=== PATIENT | female | born 1930 | race Caucasian/White ===

== ENCOUNTER 2016-10-02 10:22 | Outpatient (CLI) | payer MEDICARE ==
[2016-10-02 11:25] LABS: Anion Gap 14 mmol/L (10-20); BUN (Urea Nitrogen) 13 mg/dL (9.8-20.1); Calc. Creatinine Clearance 0 mL/min (70-130); Calcium 9.1 mg/dL (7.8-10.44); Carbon Dioxide 29 mmol/L (23-31); Chloride 105 mmol/L (98-107); Estimated GFR-MDRD 74
[2016-10-02 11:36] LABS: #Basophils 0.1 thou/uL (0.0-0.2); #Eosinphils 0.1 thou/uL (0.0-0.7); #Lymphocytes 1.6 thou/uL (1.20-3.40); #Monocytes 0.5 thou/uL (0.11-0.59); #Neutrophils 3.8 thou/uL (1.40-6.50); %Eosinophils 1.5 % (0.0-10.0); %Monocytes 8.9 % (0.0-10.0); Hematocrit 39.6 % (36.0-47.0); Mean Platelet Volume 7.4 fL (7.4-10.4); Red Blood Cell (RBC) Count 4.08 mill/uL (4.20-5.40); White Blood Cell (WBC) Count 6.1 thou/uL (4.8-10.8)
== END 2016-10-02 10:23 | disposition home or self-care (01) ==
LOC: HPCALD 10:22
PROVIDERS: ATTEND Family Medicine
DX: I10 Essential (primary) hypertension (principal)
CPT/HCPCS: 36415; 80048; 85025

== ENCOUNTER 2017-04-14 09:21 | Inpatient (IN) | payer MEDICARE ==
[~2017-04-14 09:21] MED LIST: Iopamidol 370 76% 100 ML VIAL ONE
[2017-04-14 10:00] LABS: #Basophils 0.1 thou/uL (0.0-0.2); #Lymphocytes 1.1 thou/uL (1.20-3.40); #Monocytes 0.7 thou/uL (0.11-0.59); #Neutrophils 9.2 thou/uL (1.40-6.50); %Basophils 1.1 % (0.0-1.0); %Eosinophils 0.2 % (0.0-10.0); %Lymphocytes 9.6 % (21.0-51.0); %Monocytes 6.6 % (0.0-10.0); %Neutrophils 82.5 % (42.0-75.0); Hemoglobin 13.3 g/dL (12.0-16.0); Mean Corpuscular HGB CONC 33.2 g/dL (32.0-36.0); Mean Corpuscular Hemoglobin 32.5 pg (27.0-31.0); Mean Corpuscular Volume 97.9 fl (81.0-99.0); Mean Platelet Volume 7.9 fL (7.4-10.4); Platelet Count 187 thou/uL (130-400); RBC Distribution Width 11.8 % (11.5-14.5); White Blood Cell (WBC) Count 11.2 thou/uL (4.8-10.8)
[2017-04-14 10:02] LABS: INR-International Normal Ratio 1.2; PTT 27.6 SEC (22.9-36.1); Prothrombin Time 15.8 SEC (12.0-14.7)
[2017-04-14 10:05] LABS: Bilirubin Negative (Negative); Blood, Urine Trace (Negative); Clarity Clear (Clear); Glucose, Urine (Dipstick) Negative (Negative); Leukocyte Negative (Negative); Nitrite Negative (Negative); Protein, Urine (Dipstick) Trace mg/dL (Neg-Trace); Urobilinogen 0.2 mg/dL (0.2-1.0)
[2017-04-14 10:15] LABS: Amphetamine Not Detected (NotDetected); Bacteria/HPF 1+ HPF (None Seen); Barbiturates Screen Not Detected (NotDetected); Benzodiazepine Screen Not Detected (NotDetected); Cocaine Metabolite Screen Not Detected (NotDetected); Crystals/HPF 1+ AMORPH URATES HPF (Negative); Medtox Control Line Valid? VALID (VALID); Methadone Not Detected (NotDetected); Methamphetamine Not Detected (NotDetected); Opiate Screen Not Detected (NotDetected); Oxycodone Screen Not Detected (NotDetected); Phencyclidine (PCP) Not Detected (NotDetected); RBC/HPF 0-3 HPF (0-3); Squamous Epithelial 0-3 HPF (0-3); THC/Cannabinoid Screen Not Detected (NotDetected); Tricyclic Screen Not Detected (NotDetected); WBC/HPF 0-3 HPF (0-3)
[2017-04-14 10:21] LABS: Troponin I Less than 0.010 ng/mL (< 0.028)
[2017-04-14 11:52] LABS: ALT (SGPT) Less than 7 U/L (8-55); AST (SGOT) 16 U/L (5-34); Albumin 4.7 g/dL (3.4-4.8); Alkaline Phosphatase 52 U/L (40-150); Anion Gap 19 mmol/L (10-20); BUN (Urea Nitrogen) 39 mg/dL (9.8-20.1); Bilirubin, Total 0.3 mg/dL (0.2-1.2); Calc. Creatinine Clearance 0 mL/min (70-130); Calcium 10.3 mg/dL (7.8-10.44); Carbon Dioxide 21 mmol/L (23-31); Chloride 108 mmol/L (98-107); Estimated GFR-MDRD 59; Globulin 3.3 g/dL (2.4-3.5); Glucose 134 mg/dL (83-110); Lipase 50 U/L (8-78); Potassium 3.5 mmol/L (3.5-5.1); Sodium 144 mmol/L (136-145)
--- NOTE | 2017-04-14 14:15 | CT ---
CT ANGIOGRAM THORAX WITH IV CONTRAST AND 3D RECONSTRUCTIONS 04/14/2017 HISTORY: Dyspnea. Altered mental status and confusion and agitation. COMPARISON: 10/01/2015 FINDINGS: Exam is obtained with the patient in the kyphotic positioning. There is a left subclavian AICD guillermina ce noted in place. The pacing device in the soft tissues of the left chest results in significant a rtifact in addition to significant spray artifact from the dense contrast in the SVC. However, no d efinite filling defects are seen in the pulmonary arteries to suggest a pulmonary embolus. Vascular calcifications are seen in the thoracic aorta; the thoracic aorta is normal in caliber with out evidence of an aortic dissection. A large hiatal hernia is again present with the majority of the stomach above the level of the hemid iaphragms. The heart is enlarged, and there is a small pericardial effusion identified. Dependent atelectasis seen in the lungs bilaterally. No discrete pulmonary nodule mass, or pleural effusion is identified. Degenerative changes are noted in the spine. Lucency is seen within the region of the right glenoid neck, but this stable from the prior exam and may be related to a large subchondral cyst. A hypodense nodule is again seen in the right lobe of the thyroid gland which measures 1.7 cm. The patient was noted to have compression fracture of T7 and T12 vertebral bodies on prior exam not well seen on this study. IMPRESSION: 1. No CT evidence of a pulmonary embolus. 3. Stable, mild prominence of the main pulmonary arteries which may be related to an element of pulm onary artery hypertension. 3. Cardiomegaly with small pericardial effusion. 4. Large hiatal hernia. 5. Stable hypodense cystic lesion in the right lobe of the thyroid gland. Thyroid ultrasound was re commended on the prior exam. 6. Post-cholecystectomy changes with prominence of the common duct likely related to the post-cholec ystectomy changes. 7. Hypodense lesion, incompletely imaged or evaluated, involving the left kidney. This was noted on prior MRI exam in 2013. 8. Left convex rotoscoliosis of the thoracolumbar spine. 9. Cystic lesion within the right glenoid, stable from prior study and may be related to large subch ondral cyst. POS: [facility]
[2017-04-14] MEDS ORDERED: risperiDONE 0.5 MG TAB PO SCH (15:00)
[2017-04-14] MEDS ORDERED: Fluticasone Propionate Nasal Spray 16 gm Bottle NASAL SCH (15:00)
[2017-04-14 15:37] VITALS: BMI 21.3
--- NOTE | 2017-04-14 16:02 | CT ---
CT OF THE BRAIN WITHOUT CONTRAST 04/14/2017 Comparison is made with a prior study of 02/12/2016. The ventricles are normal in size for age and atrophy. No intracranial bleeding, mass, or sign of s troke was found. There is no edema. The calvarium appears normal. The visible paranasal sinuses a re clear. IMPRESSION: No acute intracranial findings. POS: HOME
--- NOTE | 2017-04-14 16:09 | RAD ---
PORTABLE CHEST 04/14/2017 Comparison is made with a 10/03/2015 study. A large hiatal hernia is again noted. It is difficult to assess the chest well due to the patient b eing turned quite a bit. This is partially responsible for the tracheal bowing to the right as well as the large aortic arch. No congestive change, large pleural effusion, or definite infiltrate was seen. A cardiac pacer is in place. IMPRESSION: Limited study showing large hiatal hernia but no definite acute findings. See CT report to follow. POS: HOME
[2017-04-14] MEDS ORDERED: Milk Of Magnesia 30 ML UDCUP PO PRN (19:36)
[2017-04-14] MEDS: Fluticasone Propionate Nasal Spray 16 gm Bottle NASAL SCH (20:37)
[2017-04-14] MEDS: Polyethylene Glycol OPTH DROP 15 ML BOT EA EYE SCH (20:38)
[2017-04-14] MEDS: risperiDONE 0.5 MG TAB PO SCH (20:39)
[2017-04-14] MEDS: Sulfameth/Trimethoprim DS 800-160mg TAB PO SCH ×2 (20:41→21:19)
[2017-04-15 06:49] LABS: #Basophils 0.2 thou/uL (0.0-0.2); #Eosinphils 0.1 thou/uL (0.0-0.7); #Monocytes 0.7 thou/uL (0.11-0.59); %Basophils 1.4 % (0.0-1.0); %Eosinophils 0.9 % (0.0-10.0); %Lymphocytes 8.8 % (21.0-51.0); %Monocytes 6.6 % (0.0-10.0); %Neutrophils 82.3 % (42.0-75.0); Hemoglobin 12.1 g/dL (12.0-16.0); Mean Corpuscular HGB CONC 33.5 g/dL (32.0-36.0); Mean Corpuscular Hemoglobin 32.4 pg (27.0-31.0); Mean Corpuscular Volume 96.7 fl (81.0-99.0); Mean Platelet Volume 7.2 fL (7.4-10.4); Platelet Count 148 thou/uL (130-400); RBC Distribution Width 11.6 % (11.5-14.5); Red Blood Cell (RBC) Count 3.73 mill/uL (4.20-5.40)
[2017-04-15 06:56] LABS: Anion Gap 15 mmol/L (10-20); BUN (Urea Nitrogen) 18 mg/dL (9.8-20.1); Calc. Creatinine Clearance 53 mL/min (70-130); Calcium 8.9 mg/dL (7.8-10.44); Carbon Dioxide 24 mmol/L (23-31); Chloride 111 mmol/L (98-107); Estimated GFR-MDRD Greater than 90; Glucose 89 mg/dL (83-110); Potassium 3.6 mmol/L (3.5-5.1); Sodium 146 mmol/L (136-145)
[2017-04-15] MEDS ORDERED: Fluticasone Propionate Nasal Spray 16 gm Bottle NASAL SCH (09:00)
[2017-04-15] MEDS: Loratadine 10 MG TAB PO SCH (09:23)
[2017-04-15] MEDS: Montelukast Sodium 10 mg Tablet PO SCH (09:23)
[2017-04-15] MEDS: Aspirin 325 mg Enteric Coated Tablet PO SCH (09:23)
[2017-04-15] MEDS: Ferrous Sulfate 325 MG TAB PO SCH (09:24)
[2017-04-15] MEDS: risperiDONE 0.5 MG TAB PO SCH ×2 (09:24→18:18)
[2017-04-15] MEDS: Sulfameth/Trimethoprim DS 800-160mg TAB PO SCH ×2 (09:24→18:19)
[2017-04-15] MEDS: Polyethylene Glycol OPTH DROP 15 ML BOT EA EYE SCH ×4 (09:31→18:22)
[2017-04-15] MEDS: Fluticasone Propionate Nasal Spray 16 gm Bottle NASAL SCH ×2 (09:41→18:20)
[2017-04-15] MEDS ORDERED: Acetaminophen 500 MG TAB PO PRN (12:05)
[2017-04-15] MEDS: LOTEPREDNOL ETABONATE EA EYE SCH ×3 (12:17→18:50)
--- NOTE | 2017-04-15 14:38 | HP ---
CHIEF COMPLAINT: Confusion and hallucinations. HISTORY OF PRESENT ILLNESS: Ms. Ratliff is an 86-year-old female with a past medical history of Louis Bonnet syndrome, macular degeneration, and advanced age, who lives at home and has a dayttime caregiver, who was brought in to the emergency room today complaining of disorientation. Per her caregiver, she found the patient with her clothes off when she arrived at the home to take care of her today; however, she still has been cognizant of person, place and location. She has had some hallucinations, complaining of seeing snakes on the ceiling. This is consistent with her past diagnosis of Louis Bonnet syndrome , but was more distressful for her over the past 24 hours. She seemed to be more disoriented from her baseline. Of note, the caregiver had reported approximately 1 week ago that the patient was somnolent throughout the day and requested to go down on Risperdal, which we did. In addition, she states that she normally fixes her pill bottle for her, but the patient has been reluctant to give her tramadol to the caregiver and knows that she can take two tablets every 4 hours. Caregiver has been counting the tablets to make sure they have been administered correctly. She states that she did feel that the patient was taking more of these over the last couple of days prior to her admission. She takes this for chronic back pain for which she has seen Pain Management. Her workup in the emergency room was essentially unremarkable except for a slightly elevated white count, positive D-dimer with CT angiogram of the chest negative for PE and an elevated BUN at 39 from her baseline, normal creatinine. PAST MEDICAL HISTORY: 1. Iron deficiency anemia due to chronic blood loss. 2. Essential hypertension. 3. Irritable bowel syndrome with diarrhea. 4. Seasonal allergic rhinitis due to pollen. 5. Chronic migraines without aura without status migrainosus and not intractable. 6. Lumbago with sciatica on the right side. 7. Other chronic pain. 8. Lousi Bonnet syndrome. 9. Tension headaches. 10. Hypercholesterolemia. 11. Anxiety disorder. 12. Dysthymic disorder. 13. Primary generalized osteoarthritis. 14. Protein calorie malnutrition. 15. Mitral valve prolapse with severe mitral insufficiency, followed by Dr. Tai. 16. Gastroesophageal reflux disease. 17. Macular degeneration. 18. Insomnia. 19. Urinary urgency. 20. Vaginal atrophy. CURRENT MEDICATIONS: 1. Ferrous sulfate 325 mg p.o. daily. 2. Tramadol 1-2 p.o. q.6 hours p.r.n. 3. Lasix one p.o. daily p.r.n. 4. Nasacort allergy 2+ in each nostril once a day. 5. Fioricet one tablet by mouth every 6 hours as needed for headache. 6. Albuterol sulfate HFA two puffs as needed q.4 hours p.r.n. shortness of breath. 7. Docusate sodium 100 mg p.o. daily p.r.n. 8. Marie 180 mg p.o. daily. 9. Benzonatate 100 mg p.o. t.i.d. p.r.n. cough. 10. Azelastine one puff nasally twice a day. 11. Sertraline 50 mg one p.o. daily. 12. Montelukast sodium 10 mg p.o. daily. 13. Hyoscyamine sulfate 0.125 sublingual every 6 hours before meals. 14. Pantoprazole 40 mg p.o. daily. 15. Candesartan 8 mg p.o. daily. 16. Boost twice a day between meals. PAST SURGICAL HISTORY: 1. Knee replacement. 2. Right foot surgery. 3. Bilateral tubal ligation. 4. Hysterectomy. 5. Cholecystectomy. 6. Pacemaker. SOCIAL HISTORY: The patient lives alone, but has a caregiver, spends approximately 8 hours with her during the day. She also has home health. She is a nonsmoker. Her son, Reji Barnes is her decision maker. She completed a high school education. She does not use alcohol or any illicit drug use, and she is . FAMILY HISTORY: Parents are from unknown causes. The patient has a son, who has a heart murmur and back pain. ALLERGIES: LYRICA, LATEX and PENICILLIN. REVIEW OF SYSTEMS: General: Denies fever, fatigue, weakness or chills. HEENT: Patient with chronic nasal allergy symptoms, not increased from the baseline. No problems with her hearing. No sore throat. The patient with macular degeneration with visual hallucinations related to that Louis Bonnet syndrome. Denies eye pain. Cardiovascular: Denies chest pain, palpitations, orthopnea, PND. Lymphatics: Patient has had some swelling in the lower extremities with onset 1 -2 days. Respiratory: Denies cough, shortness of breath, wheezing. Gastrointestinal: Denies diarrhea, constipation, abdominal pain, nausea or vomiting. Genitourinary: Denies dysuria, gross hematuria. Positive urinary frequency at baseline. Neurologic: No focal weakness. Denies numbness or tingling. Musculoskeletal: Chronic low back pain that radiates to the right leg. Psychiatric: The patient does have a history of dysthymic disorder and anxiety. She is usually oriented x3 and has a time piece repairer caregiver due to her severe macular degeneration to help with her ADLs within the home. PHYSICAL EXAMINATION: VITAL SIGNS: Temperature 98.1, pulse 88, respirations 16, O2 sat 97% on 2 liters, blood pressure 161/85. GENERAL: Well-developed, thin female lying supine in bed who is drowsy, but arousable. She denies pain and answers questions appropriately. She does seem to be in some mild distress, but cannot explain why. She is disoriented as to her place, but not person. Thin. HEENT: Pupils equally round and reactive to light and accommodation. Extraocular muscles intact bilaterally. Nares are patent without discharge. Tongue protrudes in the midline. NECK: Supple, without lymphadenopathy, thyromegaly, JVD or bruit. HEART: Regular rate and rhythm with frequent ectopy with a 4/6 systolic ejection murmur best heard left upper sternal border without radiation. LUNGS: Clear to auscultation with good air entry bilaterally. No crackles or wheezes. ABDOMEN: Positive bowel sounds in all four quadrants, soft, nontender, nondistended. No masses, guarding or rebound tenderness. EXTREMITIES: No cyanosis or clubbing, 1 mm soft pitting edema to the pretibial region bilaterally with petechial rash in that distribution. She also has some desquamation to the dorsal aspect of the right foot without obvious source of infection, but dry. NEUROLOGIC: Cranial nerves II through XII grossly intact. Positive visual hallucinations. LABORATORY DATA: White count 11.2, hemoglobin 13.3, hematocrit 40.2, platelets 187, 82% neutrophils, 9% lymphocytes. PT 15.8, INR 1.2, APTT 27.6. D-dimer 3.05. Chemistry: Sodium is 144, potassium 3.5, chloride 108, bicarbonate 21, BUN 39, creatinine 0.9, glucose 134. Lactic acid 2.0. Calcium 10.3. AST 16, ALT less than 7, alkaline phosphatase 52. Troponin I is less than 0.010. CK- MB 2.0. Serum total protein 8, albumin 4.7. TSH 0.7919. Urine significant only for trace blood and 1+ bacteria, but 0-3 rbc's, 0-3 wbc's. Urine drug screen is negative. IMAGING STUDIES: 1. Chest x-ray shows large hiatal hernia, but no definite acute findings. 2. Brain CT shows no acute intracranial findings. The ventricles are normal in size for age and atrophy. Paranasal sinuses are clear. 3. Chest, thorax CTA shows no CT evidence of pulmonary embolus. Stable mild prominence of the main pulmonary arteries which may be related to an element of pulmonary artery hypertension, cardiomegaly with small pericardial effusion, large hiatal hernia, stable hypodense cystic lesion in the right lobe of the thyroid gland. Thyroid ultrasound was recommended on the prior exam. Post- cholecystectomy changes with prominence of the common bile duct related to post- cholecystectomy changes likely. Hypodense lesion incompletely imaged, reevaluated involving the left kidney. This was noted on prior MR exam in 2013. Left convex rotoscoliosis of the thoracolumbar spine. Cystic lesion within the right glenoid, stable from the prior study and may be related to large subchondral cyst. IMPRESSION: 1. Acute delirium with a history of Louis Bonnet syndrome. Infectious causes have essentially been ruled out with the exception of possible early cellulitis bilateral lower extremities with leukocytosis. We will start patient on Bactrim DS one p.o. b.i.d. and elevate the extremities. 2. Prerenal azotemia. The patient was given a 1 liter fluid bolus over the course of 2 hours. We will recheck her lab in the a.m. 3. Louis Bonnet syndrome. We may need to continue the Risperdal b.i.d. This may be due to the decrease in dosing recently. We will also hold her tramadol at this time in case she has been overmedicating. We will have to speak with her about letting the caregiver manage the meds going forward to prevent any incorrect dosing. 4. Cellulitis, bilateral lower extremities. Please see problem #1. 5. Iron deficiency anemia. Hemoglobin and hematocrit are normal. We will continue ferrous sulfate. 6. Essential hypertension. The patient's angiotensin receptor danielle will be continued. 7. Gastroesophageal reflux disease. Patient's GI regimen will be continued. 8. Seasonal allergies. Patient's nasal sprays and allergy medications will be continued as well. 9. History of chronic migraine without aura. Patient will be given her Fioricet p.r.n. 10. Lumbago with sciatica. We may need some PT and OT for this. For right now , we will withhold the tramadol which she has been using at home for pain. We will treat if needed. 11. Louis Bonnet syndrome. This is chronic and being managed by her sidewalk repairer. 12. Hypercholesterolemia. Patient will be placed on a heart healthy diet. 13. Protein calorie malnutrition. We will order Ensure liquid and putting to help administer her medications. 14. Irritable bowel syndrome. We have ordered her hyoscyamine p.r.n. 15. Prophylaxis. The patient is on a PPI. The patient will be placed on sequential compression devices. I attempted to call her son, Reji Barnes to discuss CODE STATUS, but could not get in touch with anyone. I also was not able to get in touch with her caregiver. She will remain FULL CODE overnight until this can be clarified. PURVI
[2017-04-16 04:45] LABS: #Basophils 0.1 thou/uL (0.0-0.2); #Eosinphils 0.2 thou/uL (0.0-0.7); #Lymphocytes 1.4 thou/uL (1.20-3.40); #Monocytes 0.7 thou/uL (0.11-0.59); #Neutrophils 5.1 thou/uL (1.40-6.50); %Basophils 1.3 % (0.0-1.0); %Eosinophils 2.1 % (0.0-10.0); %Lymphocytes 18.5 % (21.0-51.0); %Monocytes 8.9 % (0.0-10.0); %Neutrophils 69.3 % (42.0-75.0); Hemoglobin 12.1 g/dL (12.0-16.0); Mean Corpuscular HGB CONC 32.8 g/dL (32.0-36.0); Mean Corpuscular Hemoglobin 31.7 pg (27.0-31.0); Mean Corpuscular Volume 96.7 fl (81.0-99.0); Mean Platelet Volume 6.8 fL (7.4-10.4); Platelet Count 150 thou/uL (130-400); RBC Distribution Width 11.7 % (11.5-14.5); Red Blood Cell (RBC) Count 3.81 mill/uL (4.20-5.40); White Blood Cell (WBC) Count 7.3 thou/uL (4.8-10.8)
[2017-04-16 05:23] LABS: Anion Gap 13 mmol/L (10-20); BUN (Urea Nitrogen) 15 mg/dL (9.8-20.1); Calc. Creatinine Clearance 47 mL/min (70-130); Calcium 8.5 mg/dL (7.8-10.44); Carbon Dioxide 22 mmol/L (23-31); Chloride 111 mmol/L (98-107); Estimated GFR-MDRD 81; Glucose 92 mg/dL (83-110); Potassium 3.5 mmol/L (3.5-5.1); Sodium 142 mmol/L (136-145)
[2017-04-16] MEDS: Montelukast Sodium 10 mg Tablet PO SCH (09:12)
[2017-04-16] MEDS: risperiDONE 0.5 MG TAB PO SCH ×2 (09:13→17:44)
[2017-04-16] MEDS: Aspirin 325 mg Enteric Coated Tablet PO SCH (09:13)
[2017-04-16] MEDS: LOTEPREDNOL ETABONATE EA EYE SCH ×2 (09:14→17:51)
[2017-04-16] MEDS: Sulfameth/Trimethoprim DS 800-160mg TAB PO SCH ×3 (09:14→17:45)
[2017-04-16] MEDS: Ferrous Sulfate 325 MG TAB PO SCH (09:15)
[2017-04-16] MEDS: Loratadine 10 MG TAB PO SCH (09:16)
[2017-04-16] MEDS: Polyethylene Glycol OPTH DROP 15 ML BOT EA EYE SCH ×4 (09:16→17:50)
[2017-04-16] MEDS: Fluticasone Propionate Nasal Spray 16 gm Bottle NASAL SCH ×2 (09:17→17:43)
[2017-04-16] MEDS: Acetaminophen 500 MG TAB PO PRN (09:35)
[2017-04-16] MEDS ORDERED: ASPERCREME TOP PRN (16:49)
[2017-04-17 06:16] VITALS: BP 150/80; TEMP 98.4
[2017-04-17] MEDS: Fluticasone Propionate Nasal Spray 16 gm Bottle NASAL SCH (08:33)
[2017-04-17] MEDS: Ferrous Sulfate 325 MG TAB PO SCH (08:34)
[2017-04-17] MEDS: Aspirin 325 mg Enteric Coated Tablet PO SCH (08:35)
[2017-04-17] MEDS: Montelukast Sodium 10 mg Tablet PO SCH (08:36)
[2017-04-17] MEDS: Loratadine 10 MG TAB PO SCH (08:37)
[2017-04-17] MEDS: risperiDONE 0.5 MG TAB PO SCH (08:37)
[2017-04-17] MEDS: Sulfameth/Trimethoprim DS 800-160mg TAB PO SCH (08:39)
[2017-04-17] MEDS: Polyethylene Glycol OPTH DROP 15 ML BOT EA EYE SCH (08:42)
[2017-04-17] MEDS: LOTEPREDNOL ETABONATE EA EYE SCH (08:43)
[2017-04-17] MEDS: Acetaminophen 500 MG TAB PO PRN (08:45)
--- NOTE | 2017-04-18 00:13 | DIS ---
DATE OF ADMISSION: 04/14/2017 DATE OF DISCHARGE: 04/17/2017 ADMISSION DIAGNOSES: 1. Delirium. 2. Leukocytosis. 3. Prerenal azotemia. 4. Louis Bonnet syndrome per history. 5. Bilateral lower extremity cellulitis. DISCHARGE DIAGNOSES: 1. Delirium. 2. Leukocytosis. 3. Prerenal azotemia. 4. Louis Bonnet syndrome per history. 5. Bilateral lower extremity cellulitis. ADMITTING PHYSICIAN: Dr. Kerri Peace. PROCEDURES: 1. Chest x-ray on the date of admission, limited study showing large hiatal hernia, but no definite acute findings. 2. CT of the brain from the date of admission shows no acute intracranial findings. 3. Chest thorax CTA from the date of admission showing no CT evidence of a pulmonary embolus. Stab le mild prominence of the main pulmonary arteries which may be related to an element of pulmonary ar kleber hypertension. Cardiomegaly with small pericardial effusion. Large hiatal hernia. Stable hypo dense cystic lesion in the right lobe at the thyroid gland. Thyroid ultrasound was recommended on t he prior exam. Post-cholecystectomy changes with prominence of the common duct likely related to po st-cholecystectomy changes. Hypodense lesion incompletely imaged or evaluated involving the left ki dney. This was noted on prior MRI examine in 2013. Left convex rotoscoliosis of the thoracolumbar spine. Cystic lesion within the right glenoid stable from the prior study may be related to large s ubchondral cyst. Blood culture x2 negative at 48 hours. White count 11.2 on admission down to 7.3 on the day prior to discharge. D-dimer elevated at 3.05, which is why the CT/PE protocol was perfor med, which was negative. 4. Coags with PT elevated at 15.8, otherwise unremarkable. Chemistry profile remarkable for a BUN of 39, creatinine 0.90 on the date of admission, which quickly resolved with IV fluids. Lactic acid 2.0. Negative cardiac enzymes. Urine significant for trace blood and 1+ bacteria. Urine drug scr een was negative. HISTORY AND PHYSICAL EXAMINATION: Please see dictated report from date of admission. HOSPITAL COURSE: Ms. Ratliff is an 86-year-old female with past medical history of Maverick s Bonnet syndrome related to macular degeneration, who had been started on low dose Risperdal b.i.d. in the outpatient setting. Approximately 1 week prior to her admission, caregiver reported increas ed somnolence and this was backed off to only at nighttime. The patient also had been medicating wi th tramadol for her back pain, possibly increase in amount from her baseline. On the date of admiss darryl presented with acute delirium with visual hallucinations and confusion. Her Risperdal was incre ased back to twice daily as per her original. She experienced no increased somnolence with this. I n addition, tramadol was held. Her delirium rapidly improved over the course of her hospital admiss darryl. In addition, the patient was noted to have an edematous petechial rash from mid-tibia distally to th e foot with some desquamation and dryness to the dorsal aspect of the left foot. She was started on Bactrim and responded well to this. The rash has almost completely resolved by the time of the dis charge. In addition, her leukocytosis has resolved as well. On admission, patient with prerenal azotemia with BUN elevated. She was given approximately 1 liter of IV fluids over 2-hour period, which resolved this issue. The patient is stable and now alert and oriented x3 to her baseline. She has a caregiver at home an d wishes to discharge home with home health and caregiver. We will recommend to hold tramadol and t o treat her back pain with Tylenol p.r.n. She will finish the Bactrim at home and will continue on twice daily dosing of Risperdal. DISPOSITION: Discharged to home. CONDITION: Good. MEDICATIONS: 1. Tylenol 500 mg p.o. q.6 hours p.r.n. 2. Aspercreme topically p.r.n. 3. Ecotrin 325 mg p.o. q. day. 4. Atacand 8 mg p.o. q. day. 5. Feosol 325 mg p.o. q.a.m. with meals. 6. Nasacort Allergy 24 Hour 1 spray each nare b.i.d. 7. Marie 180 mg daily. 8. Systane ophthalmic solution 1 drop in each eye q.i.d. 9. Alrex 0.2% ophthalmic suspension 1 drop in each eye b.i.d. 10. Fexofenadine 60 mg p.o. q. day. 11. Protonix 40 mg p.o.q. day. 12. Singulair 10 mg p.o. q. day. 13. Risperdal 0.25 mg p.o. b.i.d. 14. Bactrim DS 1 p.o. b.i.d. x5 days additional course. Follow up with me Dr. Kerri Peace in approximately 10-14 days.
== END 2017-04-17 11:45 | disposition home health service (06) | DRG 948 ==
LOC: BURERS 09:21 → BURMED 14:12
PROVIDERS: ADMIT Family Medicine; ATTEND Family Medicine
DX: R41.0 Disorientation, unspecified (principal); N17.9 Acute kidney failure, unspecified; E46 Unspecified protein-calorie malnutrition; L03.115 Cellulitis of right lower limb; L03.116 Cellulitis of left lower limb; H53.16 Psychophysical visual disturbances; H35.30 Unspecified macular degeneration; I10 Essential (primary) hypertension; E78.00 Pure hypercholesterolemia, unspecified; K21.9 Gastro-esophageal reflux disease without esophagitis; M54.40 Lumbago with sciatica, unspecified side; K58.9 Irritable bowel syndrome, unspecified; R79.89 Other specified abnormal findings of blood chemistry; M15.0 Primary generalized (osteo)arthritis; Z66 Do not resuscitate; Z68.21 Body mass index [BMI] 21.0-21.9, adult; Z95.0 Presence of cardiac pacemaker
CPT/HCPCS: 36415; 36416; 51701; 70450; 71010; 71275; 80048; 80053; 80306; 81003; 81015; 82553; 83605; 83690; 83880; 84443; 84484; 85025; 85379; 85610; 85730; 87040; 93005; 94760; 96360; A4216; A4353

== ENCOUNTER 2018-12-04 13:03 | Emergency (ER) | payer MEDICARE ==
[~2018-12-04 13:03] MED LIST changes: -Iopamidol 370 76% 100 ML VIAL ONE; +Iopamidol 370 76% 150 ML VIAL FS ONE
[2018-12-04 14:16] LABS: #Basophils 0.1 thou/uL (0.0-0.2); #Eosinphils 0.2 thou/uL (0.0-0.7); #Lymphocytes 1.3 thou/uL (1.20-3.40); #Monocytes 0.7 thou/uL (0.11-0.59); #Neutrophils 5.7 thou/uL (1.40-6.50); %Basophils 1.8 % (0.0-1.0); %Eosinophils 2.5 % (0.0-10.0); %Lymphocytes 15.9 % (21.0-51.0); %Monocytes 8.8 % (0.0-10.0); %Neutrophils 71.1 % (42.0-75.0); Hemoglobin 11.4 g/dL (12.0-16.0); Mean Corpuscular HGB CONC 31.3 g/dL (32.0-36.0); Mean Corpuscular Hemoglobin 29.7 pg (27.0-31.0); Mean Corpuscular Volume 94.9 fL (78.0-98.0); Mean Platelet Volume 6.3 fL (7.4-10.4); Platelet Count 219 thou/uL (130-400); RBC Distribution Width 13.4 % (11.5-14.5); Red Blood Cell (RBC) Count 3.84 mill/uL (4.20-5.40)
[2018-12-04 14:24] LABS: Clarity Hazy (Clear)
[2018-12-04 14:25] LABS: Bilirubin Negative (Negative); Blood, Urine Trace (Negative); Glucose, Urine (Dipstick) Negative (Negative); Leukocyte Negative (Negative); Nitrite Positive (Negative); Protein, Urine (Dipstick) Negative (Neg-Trace); RBC/HPF 0-3 HPF (0-3); Urobilinogen 0.2 mg/dL (0.2-1.0); pH, Urine 5.5 (5.0-9.0)
[2018-12-04 14:26] LABS: Bacteria/HPF 4+ HPF (None Seen); Squamous Epithelial 0-3 HPF (0-3); WBC/HPF 0-3 HPF (0-3)
[2018-12-04 14:28] LABS: INR-International Normal Ratio 1.1; PTT 29.2 SEC (22.9-36.1); Prothrombin Time 14.1 SEC (12.0-14.7)
[2018-12-04 14:30] LABS: ALT (SGPT) Less than 7 U/L (8-55); AST (SGOT) 11 U/L (5-34); Albumin 3.8 g/dL (3.4-4.8); Alkaline Phosphatase 72 U/L (40-150); Anion Gap 14 mmol/L (10-20); BUN (Urea Nitrogen) 13 mg/dL (9.8-20.1); Bilirubin, Total 0.5 mg/dL (0.2-1.2); Calc. Creatinine Clearance 0 mL/min (70-130); Calcium 9.4 mg/dL (7.8-10.44); Carbon Dioxide 25 mmol/L (23-31); Chloride 104 mmol/L (98-107); Estimated GFR-MDRD Greater than 90; Globulin 3.3 g/dL (2.4-3.5); Glucose 102 mg/dL (83-110); Potassium 3.8 mmol/L (3.5-5.1); Protein, Total 7.1 g/dL (6.0-8.3); Sodium 139 mmol/L (136-145)
--- NOTE | 2018-12-04 16:11 | CT ---
CT CHEST, ABDOMEN AND PELVIS 12/04/[address] of the abdomen and pelvis was done following trauma. Axial slices were acquired, then coron al and sagittal reconstructions were done. IV contrast was employed. The patient has a cardiac pacer over the left upper chest which causes artifact on some images. There is no sign of mediastinal hematoma. The heart is enlarged. A small amount of pericardial effusion is present through this has been seen on prior scans as well. The lungs are fully inflated with no sign of pneumothorax or significant pleural effusion. There is considerable scarring and atelectasis in t he lung bases. No rib fractures are appreciated. There is an anterior compression of the T7 vertebral body, age indeterminate but I feel it is more likely old than new. A moderate sized hiatal hernia is present which has been seen on prior scans. Coronary artery calcifications are noted. CT OF THE ABDOMEN AND PELVIS: The liver, spleen, pancreas, and abdominal aorta all appeared intact. Multiple cysts are seen in each kidney arranging up to 2.5 cm in size. there is no sign of renal laceration. Both kidneys seem to fu nction normally. There has been a prior cholecystectomy. the common bile duct is mildly dilated at 1. 2 cm, but is no different than prior scans. There is a very minimal amount of biliary ductal dilation near the erin hepatis, also present before. The bowel shows no distention, wall thickening or inflammatory changes around it. There is a moderate amount of fecal material in the colon. No free air or free fluid was seen. CT of the pelvis showed no pelvic masses, hematomas or fluid collections. The bony pelvis appeared in tact. Both hips appear intact. The patient has prominent thoracolumbar scoliosis with degenerative ch rosaura at numerous levels. As mentioned above, there are anterior compressions of T7 and T12. The latte r is shown no prior studies. Significant lumbar degenerative change is present. IMPRESSION: 1. No definite acute traumatic change. 2. Thyroid nodules ranging up to 2 cm in size, particularly in the right lobe, present on prior studies. 3. Small amount of pericardial effusion, present on prior scans. 4. Coronary artery calcifications. 5. Hiatal hernia. 6. No evidence of major organ laceration or hematoma. 7. Bilateral renal cysts. 8. Severe degenerative change throughout the spine. Mild anterior compressions of T7 and T12. T1 2 is seen on prior scans. There was no adequate comparison for the T7 lesion and this should be corre lated with the clinical findings and exam. 9. Bony pelvis and hips appear intact. POS: HOME
--- NOTE | 2018-12-04 16:14 | CT ---
CT OF THE BRAIN WITHOUT CONTRAST: 12/04/18 The ventricles are normal in size and show no shift. Diffuse atrophy is present as well as some deep matter hypolucency, typical of chronic white matter ischemia. There is no sign of parenchymal bleedin g or extra-axial hematoma. There was no sign of acute stroke, mass, or edema. There is complete opaci fication of the right maxillary sinus and some of the right anterior ethmoid air cells. No air fluid level is seen in the sphenoid sinus. No fractures were detected. IMPRESSION: 1. Atrophy and chronic ischemic change but no acute findings. 2. Opaque right maxillary sinus and some right anterior ethmoid air cells. Sinusitis is preserve d. No fractures were seen. POS: HOME
[2018-12-04] MEDS ORDERED: Ciprofloxacin 500 MG TAB ONE (16:16)
--- NOTE | 2018-12-04 16:16 | RAD ---
PORTABLE CHEST 12/04/18 An AP portable film at 1329 is compared with an 07/05/18 study. The patient did not take a very deep breath which crowds some of the basilar markings, but scarring a nd atelectasis is presumed here. No major infiltrate, effusion, or pneumothorax was seen. No fracture was appreciated, though the sensitivity to such would be low. The cardiac pacer remains in place. Th ere are no findings of congestive heart failure. IMPRESSION: Chronic changes but no acute findings. POS: HOME
--- NOTE | 2018-12-04 16:20 | CT ---
CT OF THE CERVICAL SPINE 12/04/[address] of the cervical spine was done following trauma. Axial slices were acquired, then coronal a nd sagittal reconstructions were done. No fracture, dislocation, or soft tissue swelling was seen. There is narrowing at the C3-C4 disc spac e which may be partially congenital. Findings by level follow: C1-C2: No acute findings. C2-C3: No acute findings. C3-C4: Facet arthritis, worse on the left. C4-C5: Small central disc osteophyte complex that barely effaces the thecal sac and does not appear t o cause impingement. There is severe left foraminal stenosis due to osteophyte and severe facet arthr itis. C5-C6: No acute findings. C6-C7: No acute findings. Facet arthritis more prominent on left than right. C7-T1: No acute findings. T1-T2: No acute findings. Nodules are seen in the thyroid gland, particularly the right lobe, the largest measuring about 2 cm in size. This is not a new finding. IMPRESSION: Cervical spondylosis without any acute traumatic change. POS: HOME
== END 2018-12-04 17:35 | disposition home or self-care (01) ==
LOC: BURERS 13:03
DX: S70.01XA Contusion of right hip, initial encounter (principal); N39.0 Urinary tract infection, site not specified; F03.90 Unspecified dementia, unspecified severity, without behavioral disturbance, psychotic disturbance, mood disturbance, and anxiety; I10 Essential (primary) hypertension; Z79.899 Other long term (current) drug therapy; W19.XXXA Unspecified fall, initial encounter
CPT/HCPCS: 36415; 51701; 70450; 71045; 71260; 72125; 74177; 80053; 81003; 81015; 83605; 84484; 85025; 85610; 85730; 87040; 87077; 87086; 87186; 93005; 94760; A4353

== ENCOUNTER 2019-03-29 08:17 | Inpatient (IN) | payer MEDICARE ==
[2019-03-29 09:16] LABS: #Basophils 0.1 thou/uL (0.0-0.2); #Lymphocytes 0.7 thou/uL (1.20-3.40); #Monocytes 0.7 thou/uL (0.11-0.59); #Neutrophils 9.1 thou/uL (1.40-6.50); %Basophils 0.9 % (0.0-1.0); %Eosinophils 0.1 % (0.0-10.0); %Lymphocytes 6.3 % (21.0-51.0); %Monocytes 6.2 % (0.0-10.0); %Neutrophils 86.5 % (42.0-75.0); Hemoglobin 12.1 g/dL (12.0-16.0); Mean Corpuscular HGB CONC 32.1 g/dL (32.0-36.0); Mean Corpuscular Hemoglobin 31.3 pg (27.0-31.0); Mean Corpuscular Volume 97.3 fL (78.0-98.0); Mean Platelet Volume 6.3 fL (7.4-10.4); Platelet Count 203 thou/uL (130-400); RBC Distribution Width 12.9 % (11.5-14.5); Red Blood Cell (RBC) Count 3.86 mill/uL (4.20-5.40); White Blood Cell (WBC) Count 10.5 thou/uL (4.8-10.8)
[2019-03-29 09:25] LABS: ALT (SGPT) Less than 7 U/L (8-55); AST (SGOT) 25 U/L (5-34); Albumin 4.2 g/dL (3.4-4.8); Alkaline Phosphatase 67 U/L (40-150); Anion Gap 14 mmol/L (10-20); BUN (Urea Nitrogen) 13 mg/dL (9.8-20.1); CK (CPK) 738 U/L (29-168); Calc. Creatinine Clearance 0 mL/min (70-130); Calcium 9.7 mg/dL (7.8-10.44); Carbon Dioxide 28 mmol/L (23-31); Chloride 105 mmol/L (98-107); Estimated GFR-MDRD 86; Glucose 115 mg/dL (83-110); Potassium 3.4 mmol/L (3.5-5.1); Protein, Total 7.2 g/dL (6.0-8.3); Sodium 144 mmol/L (136-145)
[2019-03-29 09:52] LABS: CKMB 9.2 ng/mL (0-6.6)
[2019-03-29 09:59] LABS: Bilirubin Negative (Negative); Blood, Urine Small (Negative); Clarity Cloudy (Clear); Glucose, Urine (Dipstick) Negative (Negative); Leukocyte Negative (Negative); Nitrite Positive (Negative); Protein, Urine (Dipstick) Trace mg/dL (Neg-Trace); Urobilinogen 0.2 mg/dL (Less than 2)
[2019-03-29 10:07] LABS: RBC/HPF 0-3 HPF (0-3); WBC/HPF 0-3 HPF (0-3)
[2019-03-29 10:08] LABS: Bacteria/HPF 2+ HPF (None Seen)
[2019-03-29 12:27] LABS: CKMB 6.3 ng/mL (0-6.6); Troponin I 0.036 ng/mL (< 0.028)
[2019-03-29] MEDS ORDERED: cefTRIAXone\\ROCEPHIN 1 GM VIAL ONE (13:35)
[2019-03-29 15:41] VITALS: BMI 22.4
[2019-03-29] MEDS ORDERED: Ondansetron PF 4 MG/2 ML Vial IVP PRN (15:59)
[2019-03-29] MEDS ORDERED: Ondansetron ODT 4 MG TAB SL PRN (15:59)
[2019-03-29] MEDS: Sodium Chloride 0.9% 1,000 ML IV SCH (16:29)
--- NOTE | 2019-03-29 17:56 | CT ---
CT BRAIN WITHOUT CONTRAST: 03/29/2019 COMPARISON: 12/04/2018 FINDINGS: The ventricles remain normal in size with no shift. No intracranial bleeding, mass, or sign of acute stroke is found. There are some chronic ischemic changes throughout the deep white matter. The sku ll appears intact. There is complete opacification of the right maxillary sinus, which is presumed t o be chronic sinusitis, as the finding was present in the same fashion on the former CT exam. IMPRESSION: 1. Chronic changes but no acute findings. 2. Presumed chronic sinusitis involving the right maxillary sinus. 3. Some thickening in the right ethmoid sinus is apparent as well. POS: HOME
--- NOTE | 2019-03-29 18:02 | RAD ---
PORTABLE CHEST: Date: 03/29/19 Comparison made with the 12/04/18 study. Moderate cardiomegaly is about the same as before. The cardiac pacer remains in place. There are no c ongestive findings, pleural effusions, or focal pulmonary infiltrates. IMPRESSION: Cardiomegaly, but no acute findings. POS: HOME
--- NOTE | 2019-03-29 18:03 | RAD ---
LEFT ELBOW 4 VIEWS: Date: 03/29/19 No fracture, dislocation, or joint effusion seen. The bones and joint appear intact. IMPRESSION: No acute findings. POS: HOME
--- NOTE | 2019-03-29 18:05 | RAD ---
LEFT HAND 3 VIEWS: Date: 03/29/19 The bones are osteoporotic. There are severe arthritic changes in the IP joints of the fingers, sever e both in the proximal and distal interphalangeal joints. Some joints are completely eroded. There ma y have been old trauma at the base of the first metacarpal. Arthritic changes are seen in the first c arpometacarpal joint. The carpal bones themselves are not seen very well and I cannot exclude any dam age to the scaphoid. Calcification of the triangular fibrocartilage is present, which can be seen in various crystal arthropathies. The left thumb is abducted at the first MCP joint. IMPRESSION: Severe arthritic changes as noted above. See foregoing comments. No fracture appreciated, but not all bones seen equally well, particularly the scaphoid. POS: HOME
--- NOTE | 2019-03-29 18:06 | RAD ---
LEFT HIP 2 VIEWS: Date: 03/29/19 No fracture, dislocation, or acute bony change was seen. There is mild narrowing of the hip joint. Th e adjacent pubic ring appears intact. IMPRESSION: No acute findings. POS: HOME
--- NOTE | 2019-03-29 18:07 | CT ---
CT CERVICAL SPINE: 03/29/2019 HISTORY/TECHNIQUE: A spiral CT of the cervical spine was done following trauma. Axial slices were acquired, followed by coronal and sagittal reconstructions. FINDINGS: No fracture, dislocation, or acute bony change is seen at any cervical level. The C1 to dens distanc e is normal, and the soft tissues are normal in thickness. Findings by level follow: C1-C2: No acute findings. C2-C3: No acute findings. C3-C4: There may be partial fusion of this disk space, which might be congenital. I see no acute ch anges. There is very slight foraminal narrowing on the left. C4-C5: Prominent left facet arthritis with severe left foraminal stenosis and mild right foraminal s tenosis. C5-C6: No acute findings. C6-C7: No acute findings. C7-T1: No acute findings. T1-T2: No acute findings. Incidental findings are nodules in the right side of the thyroid gland, measuring up to 1.8 cm in siz e. This was present on a [address] and has not really grown over time. There is also complete opacifi cation of the right maxillary sinus, which was present on the prior study as well. IMPRESSION: 1. Degenerative changes of the cervical spine, but no acute traumatic findings. 2. Right thyroid nodules, which seem fairly stable since the 07/05/2018 CT scan. 3. Complete opacification of the right maxillary sinus, chronic. POS: HOME
--- NOTE | 2019-03-29 18:08 | RAD ---
RIGHT HIP TWO VIEWS: 03/29/2019 FINDINGS: Neutral and rotated views show no fracture or dislocation. There is slight narrowing of the joint sp tete, but the articular surfaces are smooth. The adjacent pubic ring appears intact. IMPRESSION: No acute bony finding. POS: HOME
[2019-03-29] MEDS ORDERED: Docusate 100 MG CAP PO PRN (18:18)
[2019-03-29] MEDS: Acetaminophen 325 MG TAB PO PRN (20:30)
[2019-03-29] MEDS: Ferrous Sulfate 325 MG TAB PO SCH (20:30)
[2019-03-30] MEDS: Sodium Chloride 0.9% 1,000 ML IV SCH ×2 (02:09→14:00)
[2019-03-30 05:45] LABS: #Basophils 0.1 thou/uL (0.0-0.2); #Eosinphils 0.1 thou/uL (0.0-0.7); #Monocytes 0.8 thou/uL (0.11-0.59); %Basophils 1.3 % (0.0-1.0); %Eosinophils 1.8 % (0.0-10.0); %Lymphocytes 12.6 % (21.0-51.0); %Neutrophils 74.4 % (42.0-75.0); Mean Corpuscular Hemoglobin 30.7 pg (27.0-31.0); Mean Corpuscular Volume 99.2 fL (78.0-98.0); Mean Platelet Volume 6.6 fL (7.4-10.4); Platelet Count 152 thou/uL (130-400); Red Blood Cell (RBC) Count 3.25 mill/uL (4.20-5.40)
[2019-03-30 05:54] LABS: Anion Gap 12 mmol/L (10-20); BUN (Urea Nitrogen) 14 mg/dL (9.8-20.1); CK (CPK) 395 U/L (29-168); Calc. Creatinine Clearance 58 mL/min (70-130); Calcium 8.5 mg/dL (7.8-10.44); Carbon Dioxide 24 mmol/L (23-31); Chloride 112 mmol/L (98-107); Estimated GFR-MDRD Greater than 90; Glucose 93 mg/dL (83-110); Sodium 145 mmol/L (136-145)
[2019-03-30 05:56] LABS: Potassium 2.9 mmol/L (3.5-5.1)
[2019-03-30] MEDS ORDERED: Potassium Chloride 20 MEQ TAB PO SCH (06:00)
[2019-03-30] MEDS: Ferrous Sulfate 325 MG TAB PO SCH ×2 (09:15→21:43)
[2019-03-30] MEDS: Acetaminophen 325 MG TAB PO PRN (09:15)
[2019-03-30] MEDS: Aspirin 325 mg Enteric Coated Tablet PO SCH (09:15)
[2019-03-30] MEDS: risperiDONE 0.5 MG TAB PO SCH (09:16)
[2019-03-30] MEDS: Montelukast Sodium 10 mg Tablet PO SCH (09:16)
[2019-03-30] MEDS: Polyethylene Glycol OPTH DROP 15 ML BOT EA EYE PRN (09:18)
[2019-03-30] MEDS: LOTEPREDNOL ETABONATE EA EYE SCH (09:20)
[2019-03-30] MEDS: Losartan Potassium 50 MG TAB PO SCH (12:14)
[2019-03-30] MEDS: Ciprofloxacin 500 MG TAB PO SCH (21:41)
[2019-03-31 06:01] LABS: #Basophils 0.1 thou/uL (0.0-0.2); #Eosinphils 0.2 thou/uL (0.0-0.7); #Lymphocytes 1.1 thou/uL (1.20-3.40); #Monocytes 0.8 thou/uL (0.11-0.59); %Basophils 1.2 % (0.0-1.0); %Eosinophils 2.3 % (0.0-10.0); %Lymphocytes 13.6 % (21.0-51.0); %Monocytes 9.7 % (0.0-10.0); %Neutrophils 73.3 % (42.0-75.0); Hemoglobin 9.4 g/dL (12.0-16.0); Mean Corpuscular HGB CONC 31.5 g/dL (32.0-36.0); Mean Corpuscular Hemoglobin 31.2 pg (27.0-31.0); Mean Corpuscular Volume 98.8 fL (78.0-98.0); Mean Platelet Volume 6.1 fL (7.4-10.4); Platelet Count 151 thou/uL (130-400); RBC Distribution Width 12.6 % (11.5-14.5); Red Blood Cell (RBC) Count 3.02 mill/uL (4.20-5.40); White Blood Cell (WBC) Count 8.2 thou/uL (4.8-10.8)
[2019-03-31] MEDS: Ciprofloxacin 500 MG TAB PO SCH (06:03)
[2019-03-31 06:12] LABS: Anion Gap 11 mmol/L (10-20); BUN (Urea Nitrogen) 9 mg/dL (9.8-20.1); CK (CPK) 250 U/L (29-168); Calc. Creatinine Clearance 63 mL/min (70-130); Calcium 8.5 mg/dL (7.8-10.44); Carbon Dioxide 26 mmol/L (23-31); Chloride 110 mmol/L (98-107); Estimated GFR-MDRD Greater than 90; Glucose 97 mg/dL (83-110); Potassium 3.1 mmol/L (3.5-5.1); Sodium 144 mmol/L (136-145)
[2019-03-31] MEDS ORDERED: Potassium Chloride 20 MEQ TAB PO SCH (07:45)
[2019-03-31] MEDS: risperiDONE 0.5 MG TAB PO SCH (08:19)
[2019-03-31] MEDS: Acetaminophen 325 MG TAB PO PRN (08:21)
[2019-03-31] MEDS: Montelukast Sodium 10 mg Tablet PO SCH (08:21)
[2019-03-31] MEDS: Losartan Potassium 50 MG TAB PO SCH (08:21)
[2019-03-31] MEDS: Nitrofurantoin Monohyd/M-Cryst 100 MG CAP PO SCH ×2 (08:21→20:42)
[2019-03-31] MEDS: Ferrous Sulfate 325 MG TAB PO SCH ×2 (08:21→20:42)
[2019-03-31] MEDS: Polyethylene Glycol OPTH DROP 15 ML BOT EA EYE PRN (08:22)
[2019-03-31] MEDS: Aspirin 325 mg Enteric Coated Tablet PO SCH (08:22)
[2019-03-31] MEDS: LOTEPREDNOL ETABONATE EA EYE SCH (08:39)
[2019-03-31] MEDS: Sodium Chloride 0.9% 1,000 ML IV SCH ×2 (17:45→17:47)
[2019-04-01 05:02] LABS: #Basophils 0.1 thou/uL (0.0-0.2); #Eosinphils 0.1 thou/uL (0.0-0.7); #Lymphocytes 0.7 thou/uL (1.20-3.40); #Monocytes 0.9 thou/uL (0.11-0.59); #Neutrophils 9.1 thou/uL (1.40-6.50); %Basophils 0.9 % (0.0-1.0); %Eosinophils 0.7 % (0.0-10.0); %Lymphocytes 6.1 % (21.0-51.0); %Monocytes 7.9 % (0.0-10.0); %Neutrophils 84.4 % (42.0-75.0); Hemoglobin 9.9 g/dL (12.0-16.0); Mean Corpuscular HGB CONC 31.6 g/dL (32.0-36.0); Mean Corpuscular Hemoglobin 31.3 pg (27.0-31.0); Mean Corpuscular Volume 99.1 fL (78.0-98.0); Mean Platelet Volume 6.6 fL (7.4-10.4); Platelet Count 159 thou/uL (130-400); RBC Distribution Width 12.4 % (11.5-14.5); Red Blood Cell (RBC) Count 3.16 mill/uL (4.20-5.40); White Blood Cell (WBC) Count 10.8 thou/uL (4.8-10.8)
[2019-04-01 05:17] LABS: Anion Gap 14 mmol/L (10-20); BUN (Urea Nitrogen) 6 mg/dL (9.8-20.1); CK (CPK) 239 U/L (29-168); Calc. Creatinine Clearance 63 mL/min (70-130); Calcium 8.9 mg/dL (7.8-10.44); Carbon Dioxide 26 mmol/L (23-31); Chloride 105 mmol/L (98-107); Estimated GFR-MDRD Greater than 90; Glucose 103 mg/dL (83-110); Potassium 3.6 mmol/L (3.5-5.1); Sodium 141 mmol/L (136-145)
[2019-04-01] MEDS ORDERED: Potassium Chloride 20 MEQ TAB PO SCH (08:00)
[2019-04-01] MEDS: Acetaminophen 325 MG TAB PO PRN ×2 (09:11→17:34)
[2019-04-01] MEDS: risperiDONE 0.5 MG TAB PO SCH (09:13)
[2019-04-01] MEDS: Aspirin 325 mg Enteric Coated Tablet PO SCH (09:18)
[2019-04-01] MEDS: Montelukast Sodium 10 mg Tablet PO SCH (09:24)
[2019-04-01] MEDS: Nitrofurantoin Monohyd/M-Cryst 100 MG CAP PO SCH ×2 (09:25→20:24)
[2019-04-01] MEDS: Losartan Potassium 50 MG TAB PO SCH (09:25)
[2019-04-01] MEDS: Ferrous Sulfate 325 MG TAB PO SCH ×2 (09:25→20:24)
[2019-04-01] MEDS: LOTEPREDNOL ETABONATE EA EYE SCH (09:26)
[2019-04-01 17:20] VITALS: BP 168/74; TEMP 101.1
[2019-04-01] MEDS ORDERED: cefTRIAXone\\ROCEPHIN 1 GM VIAL IM SCH ×2 (18:15→18:30)
[2019-04-01] MEDS ORDERED: Lidocaine 2% PF 5 ML VIAL ONE (18:29)
[2019-04-01] MEDS ORDERED: Lidocaine 1% 20 ML MDV FS PRN (18:42)
--- NOTE | 2019-04-02 01:13 | HP ---
TIME: 5:30 p.m. CHIEF COMPLAINT: Found down, fall. HISTORY OF PRESENT ILLNESS: Ms. Ratliff is an 88-year-old female, who lives alone but has a hired caregiver, who handles her affairs and checks on her regularly, who was found down in her residence early this a.m. by her caregiver. She was there for an unknown length of time, but judging by her condition, suspected several hours. She was last seen yesterday at approximately 4:30 p.m., but has had per the caregiver, a decline in the last three weeks in her health with weakness and she has been more lethargic. She is sleeping more than usual. In the emergency room, she was found to have mild rhabdomyolysis with elevated CK and indeterminate troponin, but denying complaints of chest pain with an unchanged EKG and a possible urinary tract infection with positive nitrites. She will be admitted here for further IV fluids and treatments. PAST MEDICAL HISTORY: 1. Osteoarthritis. 2. Migraines. 3. Mitral valve prolapse with severe mitral insufficiency, followed by Dr. Tai. 4. Gastroesophageal reflux disease. 5. IBS. 6. Macular degeneration. 7. Hypercholesterolemia. 8. Allergic rhinitis. 9. Hypertension. 10. Depression with insomnia. 11. Vaginal atrophy with prolapse. 12. History of iron-deficiency anemia, corrected with iron supplementation. 13. 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 15. Protein calorie malnutrition. PAST SURGICAL HISTORY: 1. Knee replacement. 2. Right foot surgery. 3. Bilateral tubal ligation. 4. Hysterectomy. 5. Cholecystectomy. 6. Pacemaker in 2016. FAMILY HISTORY: Mother is . Father is from unknown causes. She has a son, Randy Barnes, who is her medical power of managing attorney, who is alive and has a heart murmur. SOCIAL HISTORY: The patient is . She denies alcohol, tobacco, or illicit drug use. She is confined to her home with again a caregiver, who transports her to office visits. MEDICATIONS: 1. Docusate 100 mg p.o. b.i.d. p.r.n. 2. Acetaminophen 500 mg p.o. q.6 hours p.r.n. 3. Protonix 40 mg p.o. daily. 4. Loteprednol etabonate 0.2% ophthalmic suspension one drop in each eye daily. 5. Systane ophthalmic solution one drop in each eye q.i.d. p.r.n. 6. Risperdal 0.25 mg p.o. daily. 7. Butalbital/aspirin/caffeine 50/325/40 one p.o. at bedtime. 8. Atacand 8 mg p.o. daily. 9. Ferrous sulfate 325 mg p.o. b.i.d. 10. Aspirin 325 mg p.o. daily. 11. Montelukast sodium 10 mg p.o. daily. 12. Sertraline hydrochloride 50 mg p.o. daily. ALLERGIES: TO PREGABALIN, CODEINE, LATEX, NATURAL RUBBER, AND PENICILLINS. REVIEW OF SYSTEMS: GENERAL: Denies fever. Positive lethargy and generalized weakness over the last three weeks. HEENT: She has macular degeneration, but has had no new visual disturbances. She does have visual hallucinations with Louis Bonnet syndrome, they are controlled with Risperdal. Denies sore throat, runny nose, or cough. CARDIOVASCULAR: Denies chest pain, palpitations, orthopnea, or PND. RESPIRATORY: Denies shortness of breath, cough, or hemoptysis. GI: Denies abdominal pain, nausea, vomiting, constipation, or diarrhea. GENITOURINARY: Does have some foul-smelling urine and some vulvar or vaginal prolapse. This does have sometimes a discharge on her underwear due to contact. LYMPHATIC: She has not had any recent swelling per caregiver. PSYCHIATRIC: The patient has a history of anxiety and depression, but this has been stable. She has some dementia, but usually is oriented to person, time, and location. PHYSICAL EXAMINATION: VITAL SIGNS: In the ER, blood pressure 126/75, pulse 97, O2 saturation 92% on room air, respirations 18, temperature 98.6, and pain 0/10. At my exam, temp 99.7, pulse 76, respirations 18, 93% on 2 L nasal cannula, and blood pressure 115/64. GENERAL: Well-developed, thin, female, who has noticeably lost weight since my last visit with her a few months ago, who is alert and oriented to place and situation, not to time. HEENT: Her extraocular movements are grossly intact. Tongue protrudes in the midline. NECK: Supple without lymphadenopathy, thyromegaly, JVD, or bruit. HEART: Regular rate and rhythm with 3/6 systolic ejection murmur best heard at right upper sternal border with no radiation. LUNGS: Clear to auscultation with good air entry bilaterally. No crackles or wheezes. ABDOMEN: Positive bowel sounds in all four quadrants. Soft, nontender, nondistended. No masses, guarding, or rebound tenderness. EXTREMITIES: No cyanosis or clubbing. The patient with severe ecchymosis of the left elbow with edema. No warmth. SKIN: The patient with multiple bruises over the shoulders and back from being found down. LABORATORY DATA: White count 10.5, hemoglobin 12.1, hematocrit 37.5, and platelets 203. Differential, 86.5% neutrophils and lymphocytes. Sodium 144, potassium 3.4, chloride 105, bicarb 28, BUN 13, creatinine 0.65, glucose 115, lactic acid 1.7, calcium 9.7, T bilirubin 1.0, AST 25, ALT less than 7, alkaline phosphatase 67, creatine kinase 738, CK-MB 9.2, troponin I 0.036, normal albumin at 4.2, repeat CK-MB 6.3 and troponin 0.036, which is unchanged and repeat CK 622, B-type natriuretic peptide 361.2. Urine remarkable for trace ketones, small blood, positive nitrite, 4 to 6 squamous epithelial cells, 2+ amorphous crystals, and 2+ bacteria. Micro with urine culture and blood cultures pending x2. IMAGIN. Hand x-ray; severe arthritic changes. No fracture appreciated. 2. CT of the brain; chronic changes, presumed chronic sinusitis involving the right maxillary sinus, some thickening in the right ethmoid sinus. 3. Cervical spine CT; degenerative changes in the cervical spine, but no acute traumatic findings. Right thyroid nodules, which are stable since June 2018, complete opacification of the right maxillary sinus, chronic. 4. Chest x-ray; cardiomegaly, but no acute findings. 5. Hip x-ray, right; no acute bony findings. 6. Hip x-ray, left; no acute findings. 7. Elbow x-ray, left; no acute findings. ASSESSMENT AND PLAN: 1. Acute rhabdomyolysis. The patient will be admitted. She was given IV fluid bolus in the emergency room and we will continue generous IV fluids on the floor and trend the CK for improvement as well as monitor her renal function closely. 2. Urinary tract infection. We will follow up urine culture. The patient was given Rocephin in the emergency room, and we will plan to continue that while the patient is hospitalized. 3. Status post fall. The patient is physically deconditioned. We will get a Physical Therapy consultation with instructions to evaluate and treat. 4. Macular degeneration. The patient's ocular regimen will be continued. 5. History of iron-deficiency anemia. We will monitor this, but I suspect she will have a drop with IV fluids as well as, as much ecchymosis as I am observing here. 6. Hypertension. We will monitor her blood pressure and continue her antihypertensive regimen. 7. Allergic rhinitis. The patient will be continued on her home regimen. 8. Louis Bonnet syndrome. The patient will be continued on her Risperdal. 9. Depression. The patient will be continued on her Zoloft. 10. Prophylaxis. The patient is already on PPI. We will place SCDs. 11. Code status. Per previous discussions with her son, Randy Barnes, as well as her caregiver and the patient at the bedside as well as the presence of [id number] DNR, the patient wishes to continue do not attempt resuscitation status while hospitalized. Job ID: [id number]
[2019-04-02] MEDS ORDERED: cefTRIAXone\\ROCEPHIN 1 GM in Sodium Chloride 0.9% 100 ML IVPB SCH (13:00)
== END 2019-04-01 22:58 | disposition swing bed (61) | DRG 558 ==
LOC: BURERS 08:17 → BURMED 13:30 → UNDOADMIN 13:33
PROVIDERS: ADMIT Family Medicine; ATTEND Family Medicine
DX: M62.82 Rhabdomyolysis (principal); N39.0 Urinary tract infection, site not specified; R53.81 Other malaise; H35.30 Unspecified macular degeneration; Z66 Do not resuscitate; I10 Essential (primary) hypertension; J30.9 Allergic rhinitis, unspecified; F32.9 Major depressive disorder, single episode, unspecified; M19.90 Unspecified osteoarthritis, unspecified site; G43.909 Migraine, unspecified, not intractable, without status migrainosus; I34.1 Nonrheumatic mitral (valve) prolapse; K21.9 Gastro-esophageal reflux disease without esophagitis; K58.9 Irritable bowel syndrome, unspecified; E78.00 Pure hypercholesterolemia, unspecified; G47.00 Insomnia, unspecified; G89.29 Other chronic pain; M54.5 Low back pain; F03.90 Unspecified dementia, unspecified severity, without behavioral disturbance, psychotic disturbance, mood disturbance, and anxiety; Z96.659 Presence of unspecified artificial knee joint; Z98.51 Tubal ligation status; Z90.710 Acquired absence of both cervix and uterus; Z90.49 Acquired absence of other specified parts of digestive tract; Z79.82 Long term (current) use of aspirin; Z88.5 Allergy status to narcotic agent; Z88.0 Allergy status to penicillin; Z95.0 Presence of cardiac pacemaker
CPT/HCPCS: 36415; 51702; 70450; 71045; 72125; 80048; 80053; 81003; 81015; 82550; 82553; 83605; 83880; 84484; 85025; 87040; 87077; 87086; 87149; 87186; 93005; 96361; 96374; J0696; J2001

== ENCOUNTER 2019-04-01 23:03 | Inpatient (IN) | payer MEDICARE ==
[2019-04-01 23:36] VITALS: BMI 22.4
[2019-04-02] MEDS ORDERED: Acetaminophen 325 MG TAB PO PRN (02:07)
[2019-04-02] MEDS ORDERED: Docusate 100 MG CAP PO PRN (02:07)
[2019-04-02] MEDS ORDERED: Ondansetron ODT 4 MG TAB SL PRN (02:07)
[2019-04-02] MEDS ORDERED: Polyethylene Glycol OPTH DROP 15 ML BOT EA EYE PRN (02:08)
[2019-04-02] MEDS: Potassium Chloride 20 MEQ TAB PO SCH (08:15)
[2019-04-02] MEDS: Aspirin 325 mg Enteric Coated Tablet PO SCH (09:16)
[2019-04-02] MEDS: Montelukast Sodium 10 mg Tablet PO SCH (09:17)
[2019-04-02] MEDS: risperiDONE 0.5 MG TAB PO SCH (09:17)
[2019-04-02] MEDS: Ferrous Sulfate 325 MG TAB PO SCH ×2 (09:18→20:35)
[2019-04-02] MEDS: Losartan Potassium 50 MG TAB PO SCH (09:18)
[2019-04-02] MEDS: LOTEPREDNOL ETABONATE EA EYE SCH (11:51)
[2019-04-02] MEDS ORDERED: Lidocaine 1% PF 5 ML VIAL ONE (17:28)
[2019-04-02] MEDS: cefTRIAXone\\ROCEPHIN 1 GM VIAL IM SCH (17:50)
[2019-04-03] MEDS: Potassium Chloride 20 MEQ TAB PO SCH (07:53)
[2019-04-03] MEDS: Ferrous Sulfate 325 MG TAB PO SCH ×2 (09:18→21:48)
[2019-04-03] MEDS: Aspirin 325 mg Enteric Coated Tablet PO SCH (09:19)
[2019-04-03] MEDS: Montelukast Sodium 10 mg Tablet PO SCH (09:19)
[2019-04-03] MEDS: Losartan Potassium 50 MG TAB PO SCH (09:19)
[2019-04-03] MEDS: risperiDONE 0.5 MG TAB PO SCH (09:20)
[2019-04-03] MEDS: LOTEPREDNOL ETABONATE EA EYE SCH (09:21)
[2019-04-03] MEDS ORDERED: Lidocaine 1% PF 5 ML VIAL ONE (16:51)
[2019-04-03] MEDS: cefTRIAXone\\ROCEPHIN 1 GM VIAL IM SCH (17:35)
[2019-04-04 05:29] LABS: #Basophils 0.2 thou/uL (0.0-0.2); #Eosinphils 0.4 thou/uL (0.0-0.7); #Lymphocytes 0.9 thou/uL (1.20-3.40); #Monocytes 0.9 thou/uL (0.11-0.59); #Neutrophils 6.3 thou/uL (1.40-6.50); %Basophils 1.8 % (0.0-1.0); %Eosinophils 4.9 % (0.0-10.0); %Lymphocytes 10.6 % (21.0-51.0); %Monocytes 10.3 % (0.0-10.0); %Neutrophils 72.4 % (42.0-75.0); Mean Corpuscular Hemoglobin 31.6 pg (27.0-31.0); Mean Corpuscular Volume 98.9 fL (78.0-98.0); Mean Platelet Volume 6.2 fL (7.4-10.4); Platelet Count 199 thou/uL (130-400); Red Blood Cell (RBC) Count 3.18 mill/uL (4.20-5.40); White Blood Cell (WBC) Count 8.6 thou/uL (4.8-10.8)
[2019-04-04 05:30] LABS: Anion Gap 15 mmol/L (10-20); BUN (Urea Nitrogen) 8 mg/dL (9.8-20.1); CK (CPK) 49 U/L (29-168); Calc. Creatinine Clearance 60 mL/min (70-130); Carbon Dioxide 26 mmol/L (23-31); Chloride 102 mmol/L (98-107); Estimated GFR-MDRD Greater than 90; Glucose 92 mg/dL (83-110); Sodium 139 mmol/L (136-145)
[2019-04-04] MEDS: Potassium Chloride 20 MEQ TAB PO SCH (08:00)
[2019-04-04] MEDS: Montelukast Sodium 10 mg Tablet PO SCH (09:00)
[2019-04-04] MEDS: Aspirin 325 mg Enteric Coated Tablet PO SCH (09:00)
[2019-04-04] MEDS: Ferrous Sulfate 325 MG TAB PO SCH ×2 (09:30→21:33)
[2019-04-04] MEDS: Losartan Potassium 50 MG TAB PO SCH (09:32)
[2019-04-04] MEDS: risperiDONE 0.5 MG TAB PO SCH ×2 (09:33→21:32)
[2019-04-04] MEDS: LOTEPREDNOL ETABONATE EA EYE SCH (10:34)
[2019-04-04] MEDS ORDERED: [UNRECOGNIZED DRUG - OTHER] PO PRN (10:49)
--- NOTE | 2019-04-04 13:21 | RAD ---
EXAM: XR Hip Lt 2-3 View PROVIDED CLINICAL HISTORY: Pain FINDINGS: There is no evidence for fracture or other acute osseous abnormality with limitations due to patient body habitus and portable technique. Alignment appears anatomic. Joint spaces appear preserved. IMPRESSION: No evidence for an acute osseous abnormality. If there is persistent clinical concern, conservative m anagement and follow-up imaging advised.
--- NOTE | 2019-04-04 13:29 | RAD ---
EXAM: XR Abdomen 2 View/1 View Cxr PROVIDED CLINICAL HISTORY: Abdominal pain COMPARISON: 03/29/2019 FINDINGS: The chest radiograph is rotated and hypoinflated, limiting assessment. Cardiac silhouette appears enl arged. Large hiatal hernia suspected. Left midlung zone parenchymal opacity present. Left subclavian cardiac pacing device is redemonstrated in similar position. The abdominal bowel gas pattern is nonspecific. There is no evidence for pneumoperitoneum. Surgical c lips are seen in the right upper quadrant. IMPRESSION: 1. Hypoinflated chest radiograph with suspected left midlung zone opacity that may reflect subsegment al atelectasis on the basis of large hiatal hernia. Correlate with concerns for pneumonia. 2. Nonspecific bowel gas pattern.
[2019-04-04] MEDS: cefTRIAXone\\ROCEPHIN 1 GM VIAL IM SCH (19:18)
[2019-04-04] MEDS ORDERED: Acetaminophen ER (8hr) 650 MG TAB PO SCH (21:00)
[2019-04-04] MEDS: Acetaminophen ER (8hr) 650 MG TAB PO SCH (21:33)
[2019-04-05] MEDS: risperiDONE 0.5 MG TAB PO SCH ×2 (08:36→21:48)
[2019-04-05] MEDS: Acetaminophen ER (8hr) 650 MG TAB PO SCH ×2 (08:36→21:53)
[2019-04-05] MEDS: Montelukast Sodium 10 mg Tablet PO SCH (08:36)
[2019-04-05] MEDS: Potassium Chloride 20 MEQ TAB PO SCH (08:37)
[2019-04-05] MEDS: Aspirin 325 mg Enteric Coated Tablet PO SCH (08:37)
[2019-04-05] MEDS: Losartan Potassium 50 MG TAB PO SCH (08:37)
[2019-04-05] MEDS: Ferrous Sulfate 325 MG TAB PO SCH ×2 (08:37→21:52)
[2019-04-05] MEDS: LOTEPREDNOL ETABONATE EA EYE SCH (08:38)
[2019-04-05] MEDS ORDERED: Acetaminophen ER (8hr) 650 MG TAB PO SCH (09:00)
[2019-04-05] MEDS ORDERED: Lidocaine 1% PF 5 ML VIAL ONE (17:53)
[2019-04-05] MEDS: cefTRIAXone\\ROCEPHIN 1 GM VIAL IM SCH (18:48)
[2019-04-06] MEDS: Potassium Chloride 20 MEQ TAB PO SCH (08:30)
[2019-04-06] MEDS: Acetaminophen ER (8hr) 650 MG TAB PO SCH ×2 (08:31→20:58)
[2019-04-06] MEDS: Losartan Potassium 50 MG TAB PO SCH (08:34)
[2019-04-06] MEDS: Ferrous Sulfate 325 MG TAB PO SCH ×2 (08:34→20:58)
[2019-04-06] MEDS: Aspirin 325 mg Enteric Coated Tablet PO SCH (08:34)
[2019-04-06] MEDS: risperiDONE 0.5 MG TAB PO SCH ×2 (08:35→20:58)
[2019-04-06] MEDS: Montelukast Sodium 10 mg Tablet PO SCH (08:35)
[2019-04-06] MEDS: LOTEPREDNOL ETABONATE EA EYE SCH (08:37)
[2019-04-06 09:25] LABS: #Basophils 0.2 thou/uL (0.0-0.2); #Eosinphils 0.2 thou/uL (0.0-0.7); #Lymphocytes 1.2 thou/uL (1.20-3.40); #Monocytes 0.6 thou/uL (0.11-0.59); #Neutrophils 6.6 thou/uL (1.40-6.50); %Basophils 1.9 % (0.0-1.0); %Eosinophils 2.3 % (0.0-10.0); %Lymphocytes 13.7 % (21.0-51.0); Hemoglobin 12.1 g/dL (12.0-16.0); Mean Corpuscular HGB CONC 32.4 g/dL (32.0-36.0); Mean Corpuscular Hemoglobin 31.3 pg (27.0-31.0); Mean Corpuscular Volume 96.5 fL (78.0-98.0); Mean Platelet Volume 6.5 fL (7.4-10.4); Platelet Count 309 thou/uL (130-400); RBC Distribution Width 11.9 % (11.5-14.5); Red Blood Cell (RBC) Count 3.86 mill/uL (4.20-5.40); White Blood Cell (WBC) Count 8.8 thou/uL (4.8-10.8)
[2019-04-06 09:39] LABS: ALT (SGPT) Less than 7 U/L (8-55); AST (SGOT) 11 U/L (5-34); Albumin 3.7 g/dL (3.4-4.8); Alkaline Phosphatase 54 U/L (40-150); Anion Gap 15 mmol/L (10-20); BUN (Urea Nitrogen) 10 mg/dL (9.8-20.1); Bilirubin, Total 0.5 mg/dL (0.2-1.2); Calc. Creatinine Clearance 58 mL/min (70-130); Calcium 9.8 mg/dL (7.8-10.44); Carbon Dioxide 29 mmol/L (23-31); Chloride 99 mmol/L (98-107); Estimated GFR-MDRD Greater than 90; Globulin 3.7 g/dL (2.4-3.5); Glucose 122 mg/dL (83-110); Potassium 4.2 mmol/L (3.5-5.1); Protein, Total 7.4 g/dL (6.0-8.3); Sodium 139 mmol/L (136-145)
--- NOTE | 2019-04-06 10:07 | RAD ---
PORTABLE CHEST: HISTORY: Congestion and chest pain. COMPARISON: 03/29/2019. FINDINGS: There is new infiltrate in the left lower lung. CP angles are obscured suggesting bilateral effusion s. Cardiomegaly. The exam is compromised due to poor positioning. IMPRESSION: Evidence of new infiltrate in the left lower lung with bilateral effusions and bibasilar atelectasis. POS: [facility]
[2019-04-06] MEDS ORDERED: Lidocaine 1% PF 5 ML VIAL ONE (19:54)
[2019-04-06] MEDS: cefTRIAXone\\ROCEPHIN 1 GM VIAL IM SCH (20:01)
[2019-04-07 05:06] LABS: ALT (SGPT) Less than 7 U/L (8-55); AST (SGOT) 10 U/L (5-34); Albumin 3.6 g/dL (3.4-4.8); Alkaline Phosphatase 50 U/L (40-150); Anion Gap 16 mmol/L (10-20); BUN (Urea Nitrogen) 9 mg/dL (9.8-20.1); Bilirubin, Total 0.5 mg/dL (0.2-1.2); Calc. Creatinine Clearance 60 mL/min (70-130); Calcium 9.7 mg/dL (7.8-10.44); Carbon Dioxide 26 mmol/L (23-31); Chloride 100 mmol/L (98-107); Estimated GFR-MDRD Greater than 90; Globulin 3.5 g/dL (2.4-3.5); Glucose 107 mg/dL (83-110); Potassium 4.3 mmol/L (3.5-5.1); Protein, Total 7.1 g/dL (6.0-8.3); Sodium 138 mmol/L (136-145)
[2019-04-07 05:09] LABS: Eosinophils 2 % (0-10); Hemoglobin 11.5 g/dL (12.0-16.0); Lymphocytes 19 % (21-51); MDiff Complete? YES; Mean Corpuscular HGB CONC 32.6 g/dL (32.0-36.0); Mean Corpuscular Hemoglobin 31.2 pg (27.0-31.0); Mean Corpuscular Volume 95.7 fL (78.0-98.0); Monocytes 8 % (0-10); Neutrophil 69 % (42-75); Platelet Count 298 thou/uL (130-400); Platelet Morphology Comment Appears Adequate; RBC Distribution Width 11.7 % (11.5-14.5); RBC Morphology Normal; Red Blood Cell (RBC) Count 3.67 mill/uL (4.20-5.40); White Blood Cell (WBC) Count 9.2 thou/uL (4.8-10.8)
[2019-04-07] MEDS: Losartan Potassium 50 MG TAB PO SCH (09:15)
[2019-04-07] MEDS: Potassium Chloride 20 MEQ TAB PO SCH (09:15)
[2019-04-07] MEDS: Aspirin 325 mg Enteric Coated Tablet PO SCH (09:15)
[2019-04-07] MEDS: Ferrous Sulfate 325 MG TAB PO SCH ×3 (09:15→23:08)
[2019-04-07] MEDS: risperiDONE 0.5 MG TAB PO SCH ×3 (09:16→23:08)
[2019-04-07] MEDS: Montelukast Sodium 10 mg Tablet PO SCH (09:16)
[2019-04-07] MEDS: Furosemide 20 MG TAB PO SCH (09:17)
[2019-04-07] MEDS: Acetaminophen ER (8hr) 650 MG TAB PO SCH ×3 (09:19→23:08)
[2019-04-07] MEDS: LOTEPREDNOL ETABONATE EA EYE SCH (09:29)
[2019-04-07] MEDS: cefTRIAXone\\ROCEPHIN 1 GM VIAL IM SCH (18:54)
[2019-04-07] MEDS ORDERED: cefTRIAXone\\ROCEPHIN 1 GM in Sodium Chloride 0.9% 100 ML IVPB SCH (20:00)
[2019-04-08] MEDS: LOTEPREDNOL ETABONATE EA EYE SCH (09:57)
[2019-04-08] MEDS: Furosemide 20 MG TAB PO SCH (09:58)
[2019-04-08] MEDS: risperiDONE 0.5 MG TAB PO SCH ×2 (09:58→21:28)
[2019-04-08] MEDS: Acetaminophen ER (8hr) 650 MG TAB PO SCH ×2 (09:59→21:28)
[2019-04-08] MEDS: Montelukast Sodium 10 mg Tablet PO SCH (09:59)
[2019-04-08] MEDS: Potassium Chloride 20 MEQ TAB PO SCH (09:59)
[2019-04-08] MEDS: Aspirin 325 mg Enteric Coated Tablet PO SCH (09:59)
[2019-04-08] MEDS: Losartan Potassium 50 MG TAB PO SCH (10:00)
[2019-04-08] MEDS: Ferrous Sulfate 325 MG TAB PO SCH ×2 (10:01→21:28)
[2019-04-09 05:27] LABS: #Basophils 0.1 thou/uL (0.0-0.2); #Eosinphils 0.5 thou/uL (0.0-0.7); #Lymphocytes 1.4 thou/uL (1.20-3.40); #Monocytes 0.8 thou/uL (0.11-0.59); #Neutrophils 6.5 thou/uL (1.40-6.50); %Basophils 1.1 % (0.0-1.0); %Eosinophils 4.9 % (0.0-10.0); %Monocytes 8.8 % (0.0-10.0); %Neutrophils 70.2 % (42.0-75.0); Hemoglobin 10.2 g/dL (12.0-16.0); Mean Corpuscular Hemoglobin 30.5 pg (27.0-31.0); Mean Corpuscular Volume 98.5 fL (78.0-98.0); Platelet Count 274 thou/uL (130-400); RBC Distribution Width 12.1 % (11.5-14.5); Red Blood Cell (RBC) Count 3.35 mill/uL (4.20-5.40); White Blood Cell (WBC) Count 9.2 thou/uL (4.8-10.8)
[2019-04-09 05:30] LABS: Anion Gap 14 mmol/L (10-20); BUN (Urea Nitrogen) 19 mg/dL (9.8-20.1); Calc. Creatinine Clearance 49 mL/min (70-130); Calcium 9.4 mg/dL (7.8-10.44); Carbon Dioxide 28 mmol/L (23-31); Chloride 100 mmol/L (98-107); Estimated GFR-MDRD 82; Glucose 97 mg/dL (83-110); Potassium 4.3 mmol/L (3.5-5.1); Sodium 138 mmol/L (136-145)
[2019-04-09] MEDS: risperiDONE 0.5 MG TAB PO SCH ×2 (08:12→20:57)
[2019-04-09] MEDS: Furosemide 20 MG TAB PO SCH (08:13)
[2019-04-09] MEDS: Potassium Chloride 20 MEQ TAB PO SCH (08:13)
[2019-04-09] MEDS: Acetaminophen ER (8hr) 650 MG TAB PO SCH ×2 (08:14→20:56)
[2019-04-09] MEDS: Montelukast Sodium 10 mg Tablet PO SCH (08:14)
[2019-04-09] MEDS: Ferrous Sulfate 325 MG TAB PO SCH ×2 (08:14→20:56)
[2019-04-09] MEDS: Aspirin 325 mg Enteric Coated Tablet PO SCH (08:14)
[2019-04-09] MEDS: Losartan Potassium 50 MG TAB PO SCH (08:15)
[2019-04-09] MEDS: LOTEPREDNOL ETABONATE EA EYE SCH (08:15)
--- NOTE | 2019-04-09 09:09 | RAD ---
EXAM: 2 view chest: INDICATIONS: Pneumonia follow-up COMPARISON: 04/06/2019 FINDINGS: Poor inspiration. Suboptimal exam due to positioning and rotation. Elevated left hemidiaphr agm again noted. CP angles are blunted consistent with small bilateral effusions and bibasilar atelectasis. Mild cardiomegaly again noted. There continues to be evidence of left basilar atelectasi s or infiltrate. IMPRESSION: Cardiomegaly. Evidence of small effusions. Left basilar atelectasis or infiltrate again n oted. No significant interval change.
[2019-04-09] MEDS ORDERED: Milk Of Magnesia 30 ML UDCUP PO PRN (14:58)
[2019-04-09] MEDS ORDERED: Bisacodyl 10 MG SUPP PR PRN (14:59)
[2019-04-09] MEDS: Docusate 100 MG CAP PO SCH (20:58)
[2019-04-10] MEDS: Acetaminophen ER (8hr) 650 MG TAB PO SCH ×2 (09:04→20:37)
[2019-04-10] MEDS: Aspirin 325 mg Enteric Coated Tablet PO SCH (09:05)
[2019-04-10] MEDS: Losartan Potassium 50 MG TAB PO SCH (09:05)
[2019-04-10] MEDS: Furosemide 20 MG TAB PO SCH (09:05)
[2019-04-10] MEDS: risperiDONE 0.5 MG TAB PO SCH ×2 (09:06→20:37)
[2019-04-10] MEDS: Ferrous Sulfate 325 MG TAB PO SCH ×2 (09:06→20:37)
[2019-04-10] MEDS: Potassium Chloride 20 MEQ TAB PO SCH (09:07)
[2019-04-10] MEDS: Docusate 100 MG CAP PO SCH ×2 (09:07→20:37)
[2019-04-10] MEDS: Montelukast Sodium 10 mg Tablet PO SCH (09:07)
[2019-04-10] MEDS: LOTEPREDNOL ETABONATE EA EYE SCH (09:10)
[2019-04-11 04:34] VITALS: BP 112/61; TEMP 98.1
[2019-04-11] MEDS: Acetaminophen ER (8hr) 650 MG TAB PO SCH (08:44)
[2019-04-11] MEDS: Furosemide 20 MG TAB PO SCH (08:45)
[2019-04-11] MEDS: Losartan Potassium 50 MG TAB PO SCH (08:45)
[2019-04-11] MEDS: Aspirin 325 mg Enteric Coated Tablet PO SCH (08:45)
[2019-04-11] MEDS: Potassium Chloride 20 MEQ TAB PO SCH (08:45)
[2019-04-11] MEDS: Ferrous Sulfate 325 MG TAB PO SCH (08:45)
[2019-04-11] MEDS: Docusate 100 MG CAP PO SCH (08:45)
[2019-04-11] MEDS: risperiDONE 0.5 MG TAB PO SCH (08:46)
[2019-04-11] MEDS: Montelukast Sodium 10 mg Tablet PO SCH (08:46)
[2019-04-11] MEDS: LOTEPREDNOL ETABONATE EA EYE SCH (08:47)
[2019-04-11] MEDS ORDERED: Nystatin Powder 15 GM BOT TOP SCH ×2 (10:45→21:00)
== END 2019-04-11 12:55 | DRG 948 ==
LOC: BURMED 23:03
PROVIDERS: ADMIT Family Medicine; ATTEND Family Medicine
DX: R53.81 Other malaise (principal); M62.82 Rhabdomyolysis; N39.0 Urinary tract infection, site not specified; Z66 Do not resuscitate; B96.20 Unspecified Escherichia coli [E. coli] as the cause of diseases classified elsewhere; M19.91 Primary osteoarthritis, unspecified site; G43.909 Migraine, unspecified, not intractable, without status migrainosus; K21.9 Gastro-esophageal reflux disease without esophagitis; I10 Essential (primary) hypertension; F32.9 Major depressive disorder, single episode, unspecified; G47.00 Insomnia, unspecified; M54.5 Low back pain; G89.29 Other chronic pain; H35.30 Unspecified macular degeneration; J30.9 Allergic rhinitis, unspecified; R44.1 Visual hallucinations; D64.9 Anemia, unspecified; E87.6 Hypokalemia; Z90.710 Acquired absence of both cervix and uterus; Z98.51 Tubal ligation status; Z95.0 Presence of cardiac pacemaker; Z90.49 Acquired absence of other specified parts of digestive tract; Z79.899 Other long term (current) drug therapy; Z88.5 Allergy status to narcotic agent; Z91.040 Latex allergy status; Z88.0 Allergy status to penicillin; Z91.048 Other nonmedicinal substance allergy status
CPT/HCPCS: 36415; 71045; 71046; 74022; 80048; 80053; 82550; 83880; 85025; J0696; J1956; J2001; J3490; Q0162